=== PATIENT | male | born 1970 | race Caucasian/White ===

== ENCOUNTER 2017-12-10 10:06 | Emergency (ER) | payer SELFPAY ==
[2017-12-10 10:07] VITALS: BP 123/75; PULSE 85; RESP 18; TEMP 36.9; O2SAT 96; BMI 35.4
--- NOTE | 2017-12-10 10:40 | CT_ITS ---
STUDY: CTA OF THE BRAIN REASON FOR EXAM: Male, 47 years old. Left-sided headaches and dizziness. RADIATION DOSAGE (If Supplied By Facility): CTDIvol = ( 28.04 ) mGy, DLP = ( 1212.00 ) mGycm TECHNIQUE: CT angiography was performed with a multi-detector CT scanner. Data acquisition was obtained from the skull base through the vertex following intravenous administration of 100 ml of Isovue-370. MIP images were reconstructed from the axial data set. Post-processing of the angiographic images was performed, with multiplanar reformation and 3D reconstruction. Individualized dose optimization techniques were used for this CT. COMPARISON: None. FINDINGS: Normal bilateral petrous carotid arteries. Normal right cavernous carotid artery with a normal supraclinoid bifurcation. Normal left cavernous carotid artery with a normal supraclinoid bifurcation. Normal right A1 segments of the anterior cerebral artery. Normal left A1 segments of the anterior cerebral artery. Normal intact anterior communicating artery (ACOM). Normal bilateral A2 segments of the anterior cerebral arteries. Normal right M1 and M2 segments of the middle cerebral arteries, with a normal M1 bifurcation. Normal left M1 and M2 segments of the middle cerebral arteries, with a normal M1 bifurcation. Normal right posterior communicating artery (PCOM). Normal left posterior communicating artery (PCOM). Normal bilateral vertebral arteries. Normal basilar artery with a normal basilar bifurcation. The visualized bilateral superior cerebellar (SCA) arteries are normal. Normal bilateral P1, P2 and visualized P3 segments of the posterior cerebral arteries. There is no demonstrated aneurysm of the [place] of Short. There is no demonstrated abnormality of the visualized brain. CT/CTA Head W/WO Contrast IMPRESSION: Normal gal[place] of [place] without a demonstrated aneurysm or hemodynamically significant stenosis. Electronically Signed: Bucky Stockton MD at 12:22 EDT Tel [phone], Service support ,
[2017-12-10] MEDS: DiphenhydrAMINE 50 MG/ML Syringe 25 MG IV (10:57)
[2017-12-10] MEDS: Ondansetron 4 MG/2 ML Vial IV (10:57)
[2017-12-10] MEDS: 0.9% Normal Saline 1,000 ML 1000 ML IV (10:57)
[2017-12-10] MEDS: Ketorolac 30 MG/ML Syringe IV (11:29)
[2017-12-10 11:31] VITALS: BP 123/84; PULSE 62; RESP 18; O2SAT 97
[2017-12-10 13:02] VITALS: BP 133/78; PULSE 67; RESP 16; O2SAT 96
--- NOTE | 2017-12-10 13:26 | ED.DCSUM_ITS ---
- ER Visit Summary Date of Service: 12/10/17 Chief Complaint: Left-sided headache History of Present Illness: The patient is a 47 M significant past medical or surgical history. Patient states at 730 this morning he had a sudden onset of the severe headache on the left side of his head. He says not the worst pain is ever had of the worse headache but it severe. He denies any recent trauma. Denies any recent fever. He denies being on any type of blood thinner. He said he did have some dizziness and nausea associated with it. Is not change with light, sound or movement. He denies any sinus congestion. Physical Examination: Middle-aged male no acute distress. Vital signs are stable afebrile. Blood pressure 123/75. H EENT exam unremarkable. His pain is along his left side of his forehead and lateral skull. But there is no reproducible tenderness. There is no signs of arteritis. There is no swelling or redness no signs of trauma. Pupils round reactive light. Sinuses are nontender. Neck nontender no lymphadenopathy. No meningismus. Able to touch chin to his chest. Lungs good auscultation bilaterally. Heart regular rhythm no murmur. Abdomen soft nontender. He is moving all 4 extremities. Neurovascular intact. Back exam normal. Neurologic exam normal. NIH is 0. Awake and alert. Normal speech. No facial droop. 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 Dorsi plantar flexion intact. Fingertip to nose and heel holloway all within normal limits. Test Results: Due to the sudden nature of the headache he was put through a CTA of his brain. There is no bleed. No acute abnormality. And no aneurysm. This was read by the radiologist and reviewed by me. Emergency Department Course and Treatment: Patient was treated with IV fluids, Benadryl and Zofran and then Toradol after I saw the initial CAT scan. His headache is resolved he feels much better and his neurologic exam remains normal. Treatment Plan: Repeat exam he is doing well at 1310. He will be discharged home. Disposition: Discharge Impression: Acute cephalgia secondary to migraine This note was generated with [employer] dictation software. It may contain incorrect words, spelling, and punctuation that were not noted in review of the chart prior to signing ED Disposition - Plan for ED Patient: Chief Complaint: Headache Referrals: Care Physician,No Primary [Primary Care Provider] -
--- NOTE | 2017-12-10 13:26 | ED.DEP ---
ED Disposition - Plan for ED Patient: Disposition: Home or Assisted Living Chief Complaint: Headache Instructions: ED Headache Migraine Referrals: Eren Holloway MD [STAFF PHYSICIAN] - As Needed Additional Instructions: Thank you have is consistent with a migraine. Plenty fluids and rest. Tylenol and Motrin for pain. Return to ER if you are feeling worse.
== END 2017-12-10 13:53 | disposition home or self-care (01) ==
PROVIDERS: Emergency Provider Emergency Medicine
DX: G43.909 Migraine, unspecified, not intractable, without status migrainosus (principal); Z72.0 Tobacco use
CPT/HCPCS: 70496; 96361; 96374; 96375; 99283; J7030; Q9967; A4216; J2405